=== PATIENT | female | born 2005 | race African-American/Black ===

== ENCOUNTER 2024-09-12 14:44 | Emergency (ER) | payer BC, SELFPAY ==
[2024-09-12 14:45] VITALS: BP 110/68; PULSE 80; RESP 16; TEMP 36.6; O2SAT 98; BMI 23.7
[2024-09-12 15:33] LABS: Absolute Lymphocyte Count 2.18 X10^3/uL (0.83-4.51); Absolute Neutrophil Count 4.6 X10^3/uL (2.0-7.7); Basophil# 0.04 X10^3/uL; Basophil% 0.5 % (0-1); Eosinophil# 0.04 X10^3/uL; Eosinophils% 0.5 % (0-5); Hemoglobin 11.1 g/dL (12.0-15.0); Lymphocyte # 2.18 X10^3/ul (0.83-4.51); Lymphocyte % 26.4 % (19-41); Mean Corp Hgb Conc 31.7 g/dL (32-36); Mean Corpuscular Hgb 25.7 pg (27.0-32.0); Mean Platelet Vol. 10.5 fl (6.2-12.0); Monocyte# 1.41 X10^3/uL; Monocyte% 17.1 % (0-10); NRBC Flagged by Analyzer 0 % (0-5); Neutrophil # 4.56 X10^3/uL (2.7-7.7); Neutrophil % 55.1 % (47-70); Platelet Count 328 K/mm3 (150-450); RBC Distribution Width CV 15.1 % (11.6-14.6); RBC Distribution Width SD 44.3 fl (35.1-43.9); Red Blood Count 4.32 M/mm3 (4.2-5.4); White Blood Count 8.3 K/mm3 (4.4-11.0)
--- NOTE | 2024-09-12 15:38 | EX.ED.VIS.PS ---
HPI <Dr. Toney Torres MD - Last Filed: 09/14/24 14:43> HPI - Psych History of Present Illness Chief Complaint: Suicidal Detail of Chief Complaint: Patient had suicidal thoughts last evening Informant: patient Onset/Context/Timing Onset: Yesterday Context: Sudden Onset Conflict: - (Under stress from school and flanking a class) Timing: Intermittent Current Severity: Gone Maximum Severity: Severe Worsened by: Situational factors Relieved by: Nothing specific Associated Symptoms Associated Symptoms - Psych: Positive for Change in sleeping and Suicidal Thoughts; Negative for Depressed, Change in Eating, Decreased Interest, Guilt, Decreased Concentration, Hopelessness, Easily distracted, Grandiosity, Flight of Ideas, Increased activity, Pressured Speech, Agitated, Angry, Hostile, Threatening, Confusion, Paranoia, Visual Hallucinations or Auditory Hallucinations Specific plan (suicidal thought): Cut herself left forearm. Narrative Narrative: Patient is a 18-year-old [employer] student. She is taking 5 classes which she equates to 21 credit hours. She apparently is flanking a class. She was scheduled to have a test today. She missed that test. Patient apparently told a professor that she had these weird thoughts of harming self and showed that she has superficial cuts on the volar surface of her left forearm. The professor told the [facility] that Ms. Marie had these thoughts and cut herself. The nurse from the wellness center interviewed her. She was then put over by ambulance for evaluation. Present she has no suicidal thoughts. She states last evening she had weird thoughts. She had thoughts of cutting herself because was told by religion figures to cut herself and since she is a Spiritism she interpreted this that God wanted her to be with him. She has no admitted psychiatric disorder. She is on no psychiatric meds. Currently she saw a counselor before starting college. She is presently not under the care of a counselor per patient. There are no records available for review. In my opinion patient is not suicidal at this time and does not need a sitter. Will have case management see her because I believe she would benefit from outpatient counseling especially since this is related to her school workload, voluntary service and the fact that she is flanking a class. Prior similar symptoms: No Recent Illness/Hospitalization: No PFSH <Dr. Toney Torres MD - Last Filed: 09/14/24 14:43> PFS Medical History no medical history no medical history Home Medications ?Medication ?Instructions ?Recorded ?Last Taken ?Type cephalexin 500 mg capsule 500 mg PO BID 5 days #10 caps 09/12/24 Unknown Rx Allergy/AdvReac Type Severity Reaction Status Date / Time No Known Allergies Allergy Verified 09/12/24 14:49 Surgical History no surgical history no surgical history Social History Smoking Status: Never smoker ROS <Dr. Toney Torres MD - Last Filed: 09/14/24 14:43> ROS ED Eyes Eyes: Denies blurry vision or change in vision ENT ENT ED: Denies ear pain, rhinorrhea or sore throat Gastrointestinal Gastrointestinal: Denies abdominal pain, diarrhea, nausea or vomiting Genitourinary Genitourinary ED: Reports dysuria; Denies hematuria or urinary frequency Neurologic Neurologic: Denies paresthesias Psychiatric Psychiatric: Reports anxiety and suicidal thoughts; Denies depression or suicidal ideation Hematologic/Lymphatic Hematologic/Lymphatic: Denies easy bleeding or easy bruising EXAM <Dr. Toney Torres MD - Last Filed: 09/14/24 14:43> Physical Exam Const Vital Signs: 09/12/24 14:45 09/12/24 15:44 09/12/24 17:00 Temperature 97.9 F Temperature Source Oral Pulse Rate 80 85 71 Respiratory Rate 16 18 18 Blood Pressure 110/68 Blood Pressure Mean 82 Pulse Ox 98 98 97 Oxygen Delivery Method Room Air Room Air Room Air 09/12/24 18:00 09/12/24 19:00 Temperature Temperature Source Pulse Rate 75 70 Respiratory Rate 18 18 Blood Pressure 97/66 Blood Pressure Mean 76 Pulse Ox 98 98 Oxygen Delivery Method Room Air Room Air Positive well nourished and well developed General Appearance ED: well developed and NAD; Negative for pallor HEENT Reports moist mucous membranes normocephalic and atraumatic Eyes PERRL and EOMs intact bilaterally General Eye ED: Negative for pale conjunctiva or scleral icterus Neck no lymphadenopathy, supple and no JVD Resp normal respiratory effort and clear to auscultation bilaterally Cardio S1 normal heart sound, S2 normal heart sound and no murmurs Rate: regular rate Rhythm: regular rhythm GI non-tender, non-distended and no masses Back/Spine no CVA tenderness Extremity Negative for normal to inspection Extremity Narrative: Patient has multiple superficial scrapes volar distal aspect of the left forearm Neuro oriented x3, CN's II-XII intact bilaterally and no sensory deficits noted [place] Coma Scale: document GCS findings Spontaneous Obeys Commands Oriented 15 Sensorium / Orientation: alert Psych Appearance: grossly normal, appropriate and well kempt Attitude: calm and engaged Activity / Motor Behavior: appropriate eye contact Speech: normal speech Mood & Affect: anxious Thought Process: normal thought process Thought Content: No suicidality, No homicidality and hallucination(s) Attention / Concentration: attention grossly intact and concentration grossly intact Memory / Cognition: memory grossly intact and cognition grossly intact Insight: fair Judgement: fair Skin Skin Narrative: Superficial abrasions distal volar left forearm General Skin Exam: Negative for jaundice or pallor Trauma: abrasion <Dr. Uriel Montaño DO - Last Filed: 09/12/24 23:43> Physical Exam Const Vital Signs: 09/12/24 14:45 09/12/24 15:44 09/12/24 17:00 Temperature 97.9 F Temperature Source Oral Pulse Rate 80 85 71 Respiratory Rate 16 18 18 Blood Pressure 110/68 Blood Pressure Mean 82 Pulse Ox 98 98 97 Oxygen Delivery Method Room Air Room Air Room Air 09/12/24 18:00 09/12/24 19:00 Temperature Temperature Source Pulse Rate 75 70 Respiratory Rate 18 18 Blood Pressure 97/66 Blood Pressure Mean 76 Pulse Ox 98 98 Oxygen Delivery Method Room Air Room Air Neuro [place] Coma Scale: document GCS findings 15 MDM <Dr. Toney Torres MD - Last Filed: 09/14/24 14:43> [facility] Narrative Medical decision making narrative: Patient with suicidal thoughts. Patient is under significant stress. My opinion she is not suicidal at this time does not have suicidal ideation. In my opinion patient would benefit from outpatient therapy. Will have case management see her to make this occur. She did report urinary symptoms. For this reason we will obtain UA. Talk screen was obtained because of her bizarre thoughts even though she denied drug use. Lab Data Attestation: I reviewed the patient's lab results. Lab results narrative: CBC reveals mild anemia. Electrolyte panel is remarkable for mild hyponatremia and hypokalemia. This would not explain her abnormal thoughts. Talk screen was positive for cannabinoids. Alcohol was nondetected. Serum test was negative. Labs: Laboratory Results - last 24 hr 09/12/24 09/12/24 09/12/24 15:09 15:20 18:52 WBC 8.3 RBC 4.32 Hgb 11.1 L Hct 35.0 L MCV 81.0 MCH 25.7 L MCHC 31.7 L RDW Std Deviation 44.3 H RDW Coeff of Radha 15.1 H Plt Count 328 MPV 10.5 Immature Gran % (Auto) 0.400 Neut % (Auto) 55.1 Lymph % (Auto) 26.4 Haines % (Auto) 17.1 H Eos % (Auto) 0.5 Baso % (Auto) 0.5 Absolute Neuts (auto) 4.6 Absolute Lymphs (auto) 2.18 Nucleated RBC % 0 Sodium 135 L Potassium 3.2 L Chloride 101 Carbon Dioxide 24.0 Anion Gap 10 BUN 10 Creatinine 0.74 Estim Creat Clear Calc 87.83 Est GFR (MDRD) Af Amer 129 Est GFR (MDRD) Non-Af 107 BUN/Creatinine Ratio 13.6 Glucose 97 Calcium 10.0 Serum , Qual NEGATIVE Urine Color Yellow Urine Clarity Clear Urine pH 6.0 Ur Specific [place] 1.010 Urine Protein Negative Urine Glucose (UA) Normal Urine Ketones 50 H Urine Occult Blood Negative Urine Nitrite Negative Urine Bilirubin Negative Urine Urobilinogen Normal Ur Leukocyte Esterase 100 H Urine RBC 0 SEEN Urine WBC 5-10 SEEN Ur Squamous Epith Cells 0-5 SEEN Urine Bacteria 1+ Urine Mucus 0 SEEN Urine Opiates Screen NEGATIVE Urine Methadone Screen NEGATIVE Ur Barbiturates Screen NEGATIVE Ur Phencyclidine Scrn NEGATIVE Ur Amphetamines Screen NEGATIVE MDMA (Ecstasy) Screen NEGATIVE U Benzodiazepines Scrn NEGATIVE Urine Cocaine Screen NEGATIVE U Cannabinoids Screen POSITIVE H Ur Drug Screen Comment Ethyl Alcohol < 3.0 Treatment and Re-Evaluation Narrative: Case was turned over to the afternoon physician Dr. Rock. Disposition be made after evaluation by delinquency prevention social worker/case management <Dr. Uriel Rock-Fabiano, DO - Last Filed: 09/12/24 23:43> [facility] Lab Data Lab results narrative: CBC reveals mild anemia. Electrolyte panel is remarkable for mild hyponatremia and hypokalemia. This would not explain her abnormal thoughts. Talk screen was positive for cannabinoids. Alcohol was nondetected. Serum test was negative. Labs: Laboratory Results - last 24 hr 09/12/24 09/12/24 09/12/24 15:09 15:20 18:52 WBC 8.3 RBC 4.32 Hgb 11.1 L Hct 35.0 L MCV 81.0 MCH 25.7 L MCHC 31.7 L RDW Std Deviation 44.3 H RDW Coeff of Radha 15.1 H Plt Count 328 MPV 10.5 Immature Gran % (Auto) 0.400 Neut % (Auto) 55.1 Lymph % (Auto) 26.4 Haines % (Auto) 17.1 H Eos % (Auto) 0.5 Baso % (Auto) 0.5 Absolute Neuts (auto) 4.6 Absolute Lymphs (auto) 2.18 Nucleated RBC % 0 Sodium 135 L Potassium 3.2 L Chloride 101 Carbon Dioxide 24.0 Anion Gap 10 BUN 10 Creatinine 0.74 Estim Creat Clear Calc 87.83 Est GFR (MDRD) Af Amer 129 Est GFR (MDRD) Non-Af 107 BUN/Creatinine Ratio 13.6 Glucose 97 Calcium 10.0 Serum , Qual NEGATIVE Urine Color Yellow Urine Clarity Clear Urine pH 6.0 Ur Specific [place] 1.010 Urine Protein Negative Urine Glucose (UA) Normal Urine Ketones 50 H Urine Occult Blood Negative Urine Nitrite Negative Urine Bilirubin Negative Urine Urobilinogen Normal Ur Leukocyte Esterase 100 H Urine RBC 0 SEEN Urine WBC 5-10 SEEN Ur Squamous Epith Cells 0-5 SEEN Urine Bacteria 1+ Urine Mucus 0 SEEN Urine Opiates Screen NEGATIVE Urine Methadone Screen NEGATIVE Ur Barbiturates Screen NEGATIVE Ur Phencyclidine Scrn NEGATIVE Ur Amphetamines Screen NEGATIVE MDMA (Ecstasy) Screen NEGATIVE U Benzodiazepines Scrn NEGATIVE Urine Cocaine Screen NEGATIVE U Cannabinoids Screen POSITIVE H Ur Drug Screen Comment Ethyl Alcohol < 3.0 Treatment and Re-Evaluation Narrative: Case was turned over to the afternoon physician Dr. Rock. Disposition be made after evaluation by delinquency prevention social worker/[facility] Patient was endorsing UTI symptoms therefore UA was obtained. UA is positive for UTI. Urine culture sent. Patient given Keflex. Will write a prescription for Keflex x 5 days. Case management evaluated the patient they recommend inpatient psychiatric facility placement. Due to this concern, I did evaluate the patient. Patient states that she has been under a lot of stress. She states she is currently failing a class. She states yesterday she had suicidal ideation. She states God wanted her to be with him. She superficially cut herself. She states she then woke up this morning and wrote an email to her professor about her attempted suicide. Patient endorses thoughts of depression as she states nobody wanted to be with her yesterday and has been tearful. Cries in the room. She states that she has not had a substantial meal since Tuesday. States she has no appetite. States she is not really eating. Patient states that she is supposed to go to [place] with her mother on Tuesday although she keeps saying [place] instead of [place]. Easily loses train of thought. She asked one of the nurses that she just met to do a handshake that they have done their entire life. She endorses flight of ideas and states that she has been having racing thoughts. She is inappropriately laughing in the room. Given all of these findings I do think patient would benefit from inpatient psychiatric evaluation. Patient was pink slipped. Will work on placement. Patient confirmed understanding of the plan of. Gen: A&O x3 Head: Normocephalic, atraumatic Eyes: No sclera icterus, conjunctiva clear, PERRL, EOMI ENT: Moist mucous membranes Neck: Trachea midline CV: RRR, no murmurs Resp: Lungs CTA BL, no w/r/c GI: Abd soft, non-distended, non-tender, no r/r/g Musc: Full ROM, no deformity Skin: Warm, dry Neuro: Alert, oriented, grossly intact, sensation intact Impression: 1. Suicidal ideation 2. Attempted suicide yesterday 3. Cutting behavior 4. Racing thoughts 5. Depression Discharge Plan Triage Chief Complaint: Suicidal ED Provider: Uriel Montaño Dx/Rx/DC Orders Clinical Impression: Depression, Verbalizes suicidal thoughts, Anxiety Prescriptions: New cephalexin 500 mg capsule 500 mg PO BID 5 Days Qty: 10 0RF Primary Care Provider: Care Physician,No Primary Referrals: Care Physician,No Primary [Primary Care Provider] - Print Language: Lithuanian Disposition Disposition: Psychiatric Hospital or Unit Discharge Location: [facility] Discharge Date/Time: 09/13/24 08:07
[2024-09-12 15:40] LABS: Internal QC Validated? YES +Cl - CLEAR BKGD; Pregnancy, Serum, hCG Quali. NEGATIVE Negative; Record Kit Lot#, Serum Preg. 869294
[2024-09-12 15:43] LABS: Anion Gap 10 (5-15); BUN 10 mg/dL (7-18); BUN/Creat Ratio 13.6 RATIO (10-20); Chloride 101 mmol/L (98-107); Creatinine, Serum 0.74 mg/dL (0.55-1.02); EST Glomerular Filtration Rate 107 mL/min (>60); Est Glom Filt Rate - Afr Amer 129 mL/min (>60); Estimated Creatinine Clearance 87.83 ml/min; Glucose 97 mg/dL (74-106); Potassium 3.2 mmol/L (3.5-5.1); Sodium Level 135 mmol/L (136-145)
[2024-09-12 15:43] LABS: Amphetamine Urine VISTA NEGATIVE (<1000 ng/mL); Barbiturate Urine VISTA NEGATIVE (< 200 ng/mL); Benzodiazepine Urine VISTA NEGATIVE (< 200 ng/mL); Cocaine Urine VISTA NEGATIVE (< 300 ng/mL); Ecstacy Urine VISTA NEGATIVE (< 500 ng/mL); Methadone Urine VISTA NEGATIVE (< 300 ng/mL); PCP Urine VISTA NEGATIVE (< 25 ng/mL); THC Urine VISTA POSITIVE (< 50 ng/mL); Vista UDS pH Range 5
[2024-09-12 15:44] VITALS: PULSE 85; RESP 18; O2SAT 98
[2024-09-12 15:44] LABS: Alcohol, Blood (Medical)-Serum < 3.0 mg/dL
[2024-09-12 17:00] VITALS: PULSE 71; RESP 18; O2SAT 97
[2024-09-12 18:00] VITALS: BP 97/66; PULSE 75; RESP 18; O2SAT 98
--- NOTE | 2024-09-12 18:15 | ED.RN ---
Pt made a comment during check in that she didn't want anyone called or to know she was here because she is famous
--- NOTE | 2024-09-12 18:36 | CM.ED ---
Social Work Psychiatric Assessment Reason for consult: Mental health, suicidal ideation Informant(s): Medical record, patient herself/Caitlinjoni Marie, and for collaborative information -[facility] ([facility] RN Francine Bro Chief Complaint: Patient presented to [facility] ED by EMS after the [facility] called for transport to [facility]. Patient reports to this senior technical writer that had spiraling negative thoughts last evening thinking that different people and even patient's new boyfriend of 2-3 weeks did not like patient. Patient reports thoughts then spiraled to God wanting patient to join God, because patient is a devout Faith. Patient reports took a cute wood box maker, and cut self with the intent to and join God. Patient went into detail, smiling and laughing about why patient has in her possession at cute wood box maker, which is to open the boxes patient's mother sends to patient. Patient reports to know that actions were technically a suicide attempt, but that this was a half-ledged attempt. This senior technical writer observed cuts to be superficial but are indeed red, scabbed and are multiple on left wrist area. Patient shared that she was stressed about taking a test in class that patient was already failing, and emailed her professor today of inability to take the test today, due to having a failed suicide attempt. Patient reports she then went about her day, went shopping, visited her boyfriend taking him folders, a face mask and popcorn to the boyfriends room and had fun. Patient reports then ended up back at her room, then at the wellness center and then at the hospital by EMS. Patient reports has not eaten a full meal since Tuesday09.09.24 at breakfast and is being picky and not sure why. Reports has snacked on some Mochi ice cream and tried some fries but nothing is good right now. Patient reports sleep is about 8 hours of sleep, but also described that she is healing her sleep. Patient mentioned going on a shopping spree last weekend. Patient talked of having fans which patient shared are people she knows and are waiting to see her. When social science research assistant's pen stopped working patient made comment that would offer the SW one of patient's award winning pens if had one in the room. Patient talked of having big plans to travel on Tuesday to [place] via to [place] to [place] to meet up with patient's mother for a 4-5 day vacation, but also told this senior technical writer they are taking a trip to [place]. Patient then reported that will be talking to her mom marilee and will get the details of the trip. Patient resistant to social science research assistant initiating any contact with her mother for support or collaborative information. Patient did report to this senior technical writer that would be wiling to follow up with counseling at the [facility] if you don't inpatient me as I have big plans to travel this weekend. For continuity of care fo this patient, spoke with RN Francine Bro at the [facility], to see if there is a copy of the email discussing the failed suicide attempt. Francine does not have this email, but did acknowledge the professor reached out to [facility] about the email that patient sent missed class and included in the email to the professor a failed suicide attempt. Francine able to provide nursing progress note from encounter with patient today as well as copy of insurance card. Copies placed on patient's chart. Visit with [facility] RN shows that patient presenting with delusional thinking and bizarre behavior. Reports that patient made comments about believing God wants patient to because of patient's sins, God is causing patient difficulties in her life and this is a sign for patient to kill self. Patient asked RN to do a special handshake that patient and RN had done since . Marital/Social History: Single, straight/cisgender/female. Reports has a boyfriend named Wan, who is a [employer] football player for the last 2-3 weeks. Wan is 19 years old, and patient describes Wan as a football player who is cute, handsome, loving, and chill; needs to work on time management and not being late. Living Situation: Currently resides in a [email or web address] house with 5 other students. Reports to feel safe in home situation. When not in college [place] the [place], [place] with her mother Germania Olsen, who patient reports was the patient's foster mother and legal guardian. Support/Resources: Reports her foster mother/adoptive mother Germania is primary support and to talk every night. Reports my family is support and referenced a younger cousin who is like a sister, and raised by Germania. Reports to have a mother and at least one half sister and half brother, but doesn't see them much. 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 Reports to have a hard time with social cues to understand when a relationship is going from acquaintances to friendship; that patient needs this to clearly be spelled out. 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 Reports to be taking the equivalent of 7 classes right now and is failing a math class. Patient reports did have an IEP in middle school, needing extra time for test taking. Reports to struggle with reading sometimes. Mental Health Treatment/History: Patient reports in middle school had a transitional period with school and changing friends, and made comments that shouldn't have. Reports may have made some statements about suicide and homicide, which resulted in an inpatient psychiatric hospitalization. Reports then went to counseling, but denies any counseling since middle school. Denies any history of being diagnosed with depression, anxiety, bipolar, schizophrenia, ADD, ADHD, or on the autism spectrum. Patient is uncertain about mental health history on biological side of family but reports to know that patient's mother had a drug use history, uncertain if there was use when patient was in utero. Triggers/Stressors to mental health: Taking 7 classes and failing one of the classes. 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 Patient also preoccupied during SW interview about patient's boyfriend being late and disorganized. Coping Skills: Five finger breathing technique that learned at [employer], listening to music on apple headphones, and walking. History of Abuse (physical/sexual/verbal/emotional): Patient denies any history, or current of physical, sexual, emotional or verbal abuse. Denies any event or experience which kinganet identifies as a trauma history. Substance Abuse Current/Historical: Patient reports last alcohol usage was in 8th grade. Reports to dislike alcohol, stating it tastes like isoproponal. Patient reports does use marijuanaa edibles with last usage on Tuesday09.07.24. Patient denies current or historical usage of cocaine, meth, heroin, prescription pills, or other narcotics. Risk to Self/Others: ? Suicidal (thought/plan/intent/attempt): Patient reports last evening, 24, used a wood box maker with intent to join God, meaning to and join God. Patient reports stopped cutting when saw oozing and some blood, that decided to go to sleep because was tired wanted to see what would happen. Reports stopped thinking of dying and joining God after 15 minutes when I was in REM sleep. Patient denies any suicide attempt prior to this event, though in middle school reports was psychiatrically hospitalized due to making comments about suicide. ? Access to Lethal Means: Denies being prescribed any medications, no reported stockpiles of medications; no firearms. Used a wood box maker to cut self but reports threw the wood box maker away, she thinks in a recycling bin. ? Homicidal (thought/plan/intent/attempt): Denies any current or recent past thoughts, plans, intent or attempts regarding homicide. Did share as a middle schooler made some comments relating to homicide. ? History of Violence (self/others/objects): Sal any violence to others or objects. Denies any violence to self outside of last evening when patient cut left wrist area. Mental Status Exam: ??? Orientation: Alert and oriented to person, place, time and situation. ??? Memory: Good Appearance/General Behavior: Clean, well groomed, directable, slightly restless/fidgety -moving around in bed. Good eye contact. Friendly. Mood/Affect: Euphoric; affect not congruent to content being discussed - laughed and smiled throughout conversation, even when talking about stressful events and situations. States Depression and anxiety are both a 1 on a scale of 1-10 with 1 being the best patient could feel. Communication Pattern: responds to questions, expansive answers, slightly rapid speech. Circumstantial - can drift in conversation but comes back to topic on own and with redirection. Thought Process: Disjointed and disorganized at times; circumstantial. Delusional thinking in that thinks God wanted patient to and join God. Denies any A/V hallucinations. General Intellectual Functioning:?? Average to above average Judgment: fair Insight: fair to poor Plan: Spoke with Dr. Rock regarding conversation with patient, as well as information gleaned from [facility] RN. - Though patient is currently denying suicidal thoughts, the patient is presenting with change in eating patterns, delusional thinking, sabianist preoccupation and self injurious behavior which was made with intent to and join God - will pursue inpatient placement for evaluation of mood and need for medication stabilization. -LUCIE Ivory
[2024-09-12 18:59] LABS: Mucous, Urine 0 SEEN /hpf (<or=2+); Red Blood Cells-Urine 0 SEEN /hpf (0-5)
[2024-09-12 19:00] VITALS: PULSE 70; RESP 18; O2SAT 98
[2024-09-12 19:01] LABS: Color, Urine Yellow (Yellow); Glucose, Dipstick Normal (Normal); Ketone-Dipstick 50 mg/dl (Negative); Leukocyte Esterase-Dipstick 100 /ul (Negative); Nitrite-Dipstick Negative (Negative); Occult Blood-Urine Negative /ul (Negative); Protein-Dipstick Negative (Negative); Urine Bilirubin Dipstick Negative (Negative); Urine Clarity Clear (Clear); Urine Urobilinogen Normal (Normal)
[2024-09-12 19:15] LABS: Squamous Epithelial Cells - UA 0-5 SEEN /hpf (5-10); White Blood Cells 5-10 SEEN /hpf (0-5)
[2024-09-12 19:16] LABS: Bacteria 1+ /hpf (None Seen)
[2024-09-12] MEDS: Cephalexin 250 MG Capsule 500 MG PO (19:36)
--- NOTE | 2024-09-12 20:11 | CM.ED ---
Social Work Spoke with Edin at [facility] Crisis Department. Handoff to Edin regarding need to assist with referrals to psychiatric facilities. Confirmed fax and faxed referral packet so referrals can be sent. Plan: Pending inpatient hospitalization. -LUCIE Ivory
--- NOTE | 2024-09-12 20:15 | ED.RN ---
MORAIMA Matamoros CM CALLED,INFO SENT TO CRISIS, CRISIS IS SENDING OUT REFERRALS FOR PLACEMENT.
--- NOTE | 2024-09-12 22:35 | ED.RN ---
REFERRED TO [facility]
--- NOTE | 2024-09-12 23:19 | ED.RN ---
Patient requested a second evaluation. She doesn't believe that she needs in patient treatment and that it would actually make her worse off. Crisis still her a went in to talk to her. Patient is pinked slipped and pending placement at [facility].
--- NOTE | 2024-09-13 01:58 | ED.RN ---
PT ACCEPTED AT [facility] [id number]
[2024-09-13 03:20] VITALS: BP 92/56; PULSE 75; RESP 16; TEMP 36.7; O2SAT 98
--- NOTE | 2024-09-13 06:34 | ED.RN ---
This RN attempted to call report to [facility]. [facility] RN denied report at this time and requested that this RN calls back later.
[2024-09-13 07:52] VITALS: BP 100/60; PULSE 72; RESP 14; TEMP 36.6; O2SAT 98
== END 2024-09-13 08:07 ==
PROVIDERS: Emergency Medicine; Emergency Provider Surgery; Visit Provider Surgery
DX: F32.A Depression, unspecified (principal); X78.9XXA Intentional self-harm by unspecified sharp object, initial encounter; R45.851 Suicidal ideations; S51.812A Laceration without foreign body of left forearm, initial encounter; F41.9 Anxiety disorder, unspecified; N39.0 Urinary tract infection, site not specified
CPT/HCPCS: 36415; 80048; 80307; 81001; 82077; 84703; 85025; 87077; 87086; 87088; 87186; 99285